=== PATIENT | male | born 1940 | race Caucasian/White ===

== ENCOUNTER 2016-10-13 06:59 | Emergency (ER) | payer MEDICARE ==
[~2016-10-13] VITALS: Ht 180.3 cm; Wt 70.3 kg
[2016-10-13 06:59] VITALS: BP_SYST 137
[2016-10-13 07:38] LABS: BASOPHILS % (AUTO) 0.6 % (0.0-2.0); EOSINOPHILS # (AUTO) 0.1 K/uL (0.0-0.4); HEMATOCRIT 30.9 % (36-54); LYMPHOCYTES # (AUTO) 0.8 K/uL (1.0-5.5); LYMPHOCYTES % (AUTO) 10.8 % (20.5-51.5); MEAN CORPUSCULAR HEMOGLOBIN 27 pg (27-31); MEAN CORPUSCULAR HGB CONC 32 % (32-36); MEAN CORPUSCULAR VOLUME 83 fL (79.0-98.0); MONOCYTES # (AUTO) 0.5 K/uL (0.0-1.0); MONOCYTES % (AUTO) 6.3 % (1.7-9.3); NEUTROPHILS # (AUTO) 6.2 K/uL (1.8-7.7); NEUTROPHILS % (AUTO) 81.3 % (40.0-70.0); PLATELET COUNT (AUTO) 388 K/uL (130-430); RED BLOOD CELL COUNT(AUTO) 3.73 MIL/uL (4.2-6.2); RED CELL DISTRIBUTION WIDTH 19.9 % (9.0-15.0); WHITE BLOOD COUNT (AUTO) 7.6 K/uL (4.8-10.8)
[2016-10-13 07:49] LABS: ANION GAP 4 (5-15); CALCIUM 8.6 mg/dL (8.4-11.0); CHLORIDE 100 mmol/L (98-107); CREATININE 1.94 mg/dL (0.55-1.30); GLUCOSE 113 mg/dL (70-99); POTASSIUM 5.5 mmol/L (3.5-5.1); SODIUM SERUM 130 mmol/L (136-145); UREA NITROGEN, BLOOD 46 mg/dL (8-21)
[2016-10-13 07:51] LABS: INR 2.5 (0.80-1.20); PROTHROMBIN TIME 28.5 SECS (9.5-12.5)
[2016-10-13 07:57] LABS: BILIRUBIN,URINE NEGATIVE (NEGATIVE); BLOOD, URINE 3+ (NEGATIVE); CLARITY/URINE CLEAR (CLEAR); COLOR,URINE YELLOW (YELLOW); GLUCOSE,URINE NEGATIVE (NEGATIVE); KETONES,URINE NEGATIVE (NEGATIVE); LEUKOCYTE ESTERASE ,URINE TRACE (NEGATIVE); NITRITE, URINE NEGATIVE (NEGATIVE); PROTEIN URINE 3+ (NEGATIVE); UROBILINOGEN,URINE 0.2 (0.2-1.0)
[2016-10-13 08:02] LABS: ALANINE AMINOTRANSFERASE 36 U/L (12-78); ASPARTATE AMINOTRANSFERASE 47 U/L (10-37); TOTAL BILIRUBIN 0.5 mg/dL (0.0-1.0); TOTAL PROTEIN, SERUM 6.4 g/dL (6.4-8.3)
[2016-10-13 08:08] LABS: BACTERIA,URINE MODERATE /HPF (None Seen); COARSE GRANULAR CASTS,URINE 0-10 /LPF (None Seen); RBC,URINE 20-50 /HPF (0-3)
[2016-10-13] MEDS ORDERED: ASPIRIN 81 MG TABLET(ECOTRIN) PO ONE (08:30)
[2016-10-13] MEDS ORDERED: ASPIRIN 81 MG TAB.CHEW PO ONE (08:30)
[2016-10-13] MEDS ORDERED: NS 250 ML IV ONE (08:45)
[2016-10-13] MEDS ORDERED: HYDR-1189 PO (09:16)
[2016-10-13] MEDS ORDERED: FURO20TA4 PO (09:16)
[2016-10-13] MEDS ORDERED: SPIR25TA4 PO (09:16)
[2016-10-13] MEDS ORDERED: WARF2TAB2 PO (09:16)
[2016-10-13] MEDS ORDERED: LIP40 PO (09:16)
[2016-10-13] MEDS ORDERED: NORT10CA PO (09:16)
[2016-10-13] MEDS ORDERED: LORA-258 PO (09:16)
[2016-10-13] MEDS ORDERED: SODIUM POLYSTYRENE SULFONATE 15 GM/60 ML UDBTL PO ONE (10:30)
[2016-10-13 10:51] VITALS: BP_SYST 128
== END 2016-10-13 10:51 | disposition short-term general hospital (02) ==
LOC: SED 06:59
DX: I24.9 Acute ischemic heart disease, unspecified (principal); J18.1 Lobar pneumonia, unspecified organism; E87.5 Hyperkalemia; N17.9 Acute kidney failure, unspecified; J44.9 Chronic obstructive pulmonary disease, unspecified; E11.9 Type 2 diabetes mellitus without complications; I10 Essential (primary) hypertension; Z95.1 Presence of aortocoronary bypass graft; Z88.8 Allergy status to other drugs, medicaments and biological substances
CPT/HCPCS: 36415; 71010; 80053; 81000; 83605; 84484; 85025; 85610; 85730; 87040; 87081; 87086; 93005; 96365; 99291; J1956; J7050